=== PATIENT | female | born 1945 | race Caucasian/White ===

== ENCOUNTER 2018-04-11 02:54 | Inpatient (IN) | payer OTHER ==
[2018-04-11] VITALS (7 sets, daily range): BP systolic 176–195; BP diastolic 74–104
[~2018-04-11] VITALS: Ht 160 cm; Wt 88.1 kg
--- NOTE | 2018-04-11 05:38 | NUR ---
ASSUMED CARE FROM [facility] VIA EMS, UPON ARRIVAL TO UNIT PT ALERT AND ORIENTED X 4 DATA BASE AND ASSESSMENT COMPLETED, PT REFUSED SCD AND TRYING TO REFUSE BED ALARM, GAIT UNSTEADY AND PT VERY SOA WITH ACTIVITY, EDUCATED PT IMPORTANTS OF USING THE BSC AND CALLING FOR ASSISTANCE, PT VERBALIZED UNDERSTANDING , AND AGREEABLE. RETAIL AIDE IN PLACE SHOW NSR. DISCUSSED PLAN OF CARE , PT VERBALIZED UNDERSTANDING AND AGREEABLE, WILL CONINTUE TO MONITOR [place].
[2018-04-11 06:30] LABS: CHOLESTEROL 151 mg/dL (<200); HDL CHOLESTEROL 50 mg/dL (>40); LDL CHOLESTEROL 92 mg/dL (<100); TRIGLYCERIDE 45 mg/dL (<150); VLDL 9 mg/dL (<40)
[2018-04-11 06:38] LABS: SERUM ASSESSMENT Clear
[2018-04-11 07:49] LABS: URINE BILIRUBIN NEGATIVE (Negative); URINE BLOOD TRACE (Negative); URINE CLARITY CLEAR; URINE COLOR YELLOW; URINE GLUCOSE-RANDOM* NEGATIVE (Negative); URINE KETONES NEGATIVE (Negative); URINE LEUKOCYTES-REFLEX NEGATIVE (Negative); URINE NITRITE-REFLEX NEGATIVE (Negative); URINE PROTEIN (DIPSTICK) 2+ (Negative); URINE UROBILINOGEN 0.2 E.U./dl (0.2-1.0)
[2018-04-11 07:50] LABS: BACTERIA-REFLEX 1-9 Few /HPF (None Seen); CASTS None Seen /LPF (None Seen); CRYSTALS None Seen /LPF (None Seen); SQUAMOUS None Seen /LPF (0-3); URINE RBC 0-2 Rare /HPF (0-2); URINE WBC-REFLEX 0-5 Rare /HPF (0-5)
[2018-04-11 08:32] LABS: ABSOLUTE NEUTROPHILS 8.2 thou/uL (1.4-8.2); BASOPHILS 0.2 % (0.0-2.0); HEMATOCRIT 33.2 % (37.0-47.0); LYMPHOCYTES 4.3 % (24.0-44.0); MCH 30.8 pg (26.0-34.0); MCHC 33.1 g/dL (28.0-37.0); MCV 92.9 fL (80.0-100.0); PLATELET COUNT 165 thou/uL (150-400); POLYS 94.5 % (36.0-66.0); RBC 3.57 mil/uL (4.20-5.00); RDW 14.5 % (10.5-14.5); WBC 8.7 thou/uL (4.0-11.0)
[2018-04-11 08:34] LABS: CALCIUM 8.6 mg/dL (8.5-10.1); MAGNESIUM 1.8 mg/dL (1.8-2.4); POTASSIUM 3.7 mmol/L (3.5-5.1)
--- NOTE | 2018-04-11 10:35 | 2DMMODE ---
[facility] [address] [place] [address] 2 D/M-MODE ECHOCARDIOGRAM Name: KAPIL FONSECA Room #: 363-P ADM IN M.R.#: [id number] Admission: 04/11/18 Attend Phys: Magno Noguera, Discharge: Date of : 43 Date of Service: 04/11/18 1035 Report #: [id number] THIS REPORT FOR: //name// APPROVED REPORT Study performed: 04/11/2018 09:27:30 EXAM: Comprehensive 2D, Doppler, and color-flow Echocardiogram Patient Location: Bedside Room #: 363 Status: routine BSA: 1.91 HR: 100 bpm BP: 187/85 mmHg Rhythm: Tachycardia Other Information Study Quality: Adequate Indications Short of breath, chest pains. Hx: CAD, stents, COPD, HTN, DM. 2D Dimensions RVDd: 41.22 mm IVSd: 13.07 (7-11mm) LVOT Diam: 22.06 (18-24mm) LVDd: 51.37 mm PWd: 11.82 (7-11mm) LVDs: 35.81 (25-40mm) Aortic Root: 36.99 mm Volumes Left Atrial Volume (Systole) Single Plane 4CH: 96.94 mL Single Plane 2CH: 65.61 mL LA ESV Index: 46.00 mL/m2 Aortic Valve AoV Peak Jamal.: 2.54 m/s AO Peak Gr.: 25.81 mmHg LVOT Max P.88 mmHg LVOT Max V: 1.79 m/s EVE Vmax: 2.70 cm2 Mitral Valve E/A Ratio: 1.6 MV Decel. Time: 151.98 ms MV E Max Jamal.: 1.54 m/s [facility] [address] [place] [address] 2 D/M-MODE ECHOCARDIOGRAM Name: KAPIL FONSECA Room #: 363-P [facility] IN .R.#: [id number] Admission: 04/11/18 Attend Phys: Magno Noguera, Discharge: Date of : 43 Date of Service: 04/11/18 1035 Report #: [id number] MV A Jamal.: 0.97 m/s MV PHT: 44.08 ms IVRT: 48.44 ms Pulmonary Valve PV Peak Jamal.: 1.45 m/s PV Peak Gr.: 8.36 mmHg Pulmonary Vein P Vein S: 0.72 m/s P Vein D: 0.71 m/s P Vein S/D Ratio: 1.01 Tricuspid Valve TR Peak Jamal.: 3.58 m/s RAP Estimate: 10.00 mmHg TR Peak Gr.: 51.27 mmHg PA Pressure: 61.00 mmHg Left Ventricle The left ventricle is normal size. There is normal LV segmental wall motion. Mild concentric left ventricular hypertrophy. Left ventricular systolic function is normal. LVEF is 60-65%. Right Ventricle The right ventricle is normal size. The right ventricular systolic function is normal. Atria Left atrium is moderately dilated. The right atrium size is normal. Aortic Valve Aortic valve is mildly calcified. No aortic regurgitation is present. There is no aortic valvular stenosis. Mitral Valve Mitral valve leaflets are mildly thickened and calcified. Mild mitral regurgitation. No evidence of mitral valve stenosis. Tricuspid Valve The tricuspid valve is normal in structure. Mild tricuspid regurgitation. Estimated PAP is 60mmHg. Pulmonic Valve Pulmonic valve is not well visualized. There is no pulmonic valvular stenosis. There is no pulmonic valvular regurgitation noted. [facility] [address] [place] [address] 2 D/M-MODE ECHOCARDIOGRAM Name: KAPIL FONSECA Room #: 363-P [facility] IN M.R.#: [id number] Admission: 04/11/18 Attend Phys: Magno Noguera, Discharge: Date of : 43 Date of Service: 04/11/18 1035 Report #: [id number] Great Vessels The aortic root is normal in size. Descending aorta is not well visualized. IVC is dilated and collapses <50% with inspiration. Pericardium There is no pericardial effusion. <Conclusion> The left ventricle is normal size. LVEF is 60-65%. The right ventricle is normal size. Left atrium is moderately dilated. Aortic valve is mildly calcified. There is no aortic valvular stenosis. Mild mitral regurgitation. Mild tricuspid regurgitation. Estimated PAP is 60mmHg. The aortic root is normal in size. There is no pericardial effusion. <ELECTRONICALLY SIGNED> By: Julio Cesar Morris MD, FACC 04/11/185 34 Julio Cesar Morris MD, FACC /INF
[2018-04-11] MEDS ORDERED: NEURONTIN600 MG PO (12:48)
[2018-04-11] MEDS ORDERED: COZAAR 25 MG TA25 M1 PO (12:49)
[2018-04-11] MEDS ORDERED: LIPITOR40 MG PO (12:50)
[2018-04-11] MEDS ORDERED: K-DUR 20 MEQ T20 MEQ PO (12:50)
[2018-04-11] MEDS ORDERED: TRESIBA FL200 UNIT/1 SUBQ (12:51)
[2018-04-11] MEDS ORDERED: LOVAZA1000 MG PO (12:51)
[2018-04-11] MEDS ORDERED: AMBIEN 5 MG TABL5 M1 PO (12:54)
[2018-04-11] MEDS ORDERED: PERCOCET 10-321 EACH PO (12:55)
[2018-04-11] MEDS ORDERED: TOPAMAX 25 MG T25 M1 PO (12:56)
[2018-04-11] MEDS ORDERED: TOPROL XL25 MG PO (12:56)
[2018-04-11] MEDS ORDERED: VENTOLIN HFA 1818 GM INH (12:57)
[2018-04-11] MEDS ORDERED: AMLODIPINE BESY10 MG PO (12:57)
[2018-04-11] MEDS ORDERED: SINGULAIR 10 MG10 M1 PO (12:57)
[2018-04-11] MEDS ORDERED: NOVOLOG100 UNIT/1 SUBQ (13:00)
[2018-04-11] MEDS ORDERED: BREO ELLIPTA 11 EACH INH (13:00)
[2018-04-11 14:54] LABS: PROT/CREAT RATIO 6.3; URINE CREATININE-RANDOM* 23.9 mg/dL; URINE PROTEIN-RANDOM* 150.7 mg/dL (<11.9)
[2018-04-11 19:23] LABS: HEMATOCRIT 33.4 % (37.0-47.0); HEMOGLOBIN 11.2 gm/dL (12.0-15.0); MCHC 33.6 g/dL (28.0-37.0); MCV 92.3 fL (80.0-100.0); RBC 3.62 mil/uL (4.20-5.00); RDW 14.7 % (10.5-14.5); WBC 8.8 thou/uL (4.0-11.0)
[2018-04-11 19:35] LABS: INR 1.1; PROTIME 11.4 Seconds (9.3-11.4)
--- NOTE | 2018-04-11 19:53 | NUR ---
PT ALERT AND ORIENTED X4. SLIGHTLY FORGETFUL TODAY. THIS AM PT UP TO COMMODE AND HAD 4 MIN OF SVT 180'S. DR ATKINS NOTIFIED AND CARD CONSULT PLACED. REPEAT TROPONIN CALLED TO HIM. MRI HEAD, ECHO, US CAROTIDS, LE DOPPLER, AND RENAL US DONE. 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 RESULT CALLED TO DR ATKINS. PT TO START ON HEPARIN GTT TONIGHT. PT STATES SHE HAD A PREVIOUS RLE DVT 5 MONTHS AGO BUT HAD A REPEAT ULTRASOUND SHOWING NO DVT SINCE THEN SO SHE WAS TAKEN OFF HER ELOQUIS. SOA WITH ACTIVITY TODAY BUT IMPROVING THIS AFTERNOON. IV LASIX GIVEN ORDERED AND DIURESING WELL FOLLOWING. SPOKE WITH PT'S PHARMACY THIS AM AND THEY FAXED A CURRENT MED LIST. MEDICAL RECORDS REQUESTS PLACED TO PT'S PCP AND INSURANCE ANALYST ORDERED. REPORT GIVEN TO MARKETING CLERK RN.
[2018-04-11 20:35] LABS: APTT 28.3 Seconds (24.5-32.8)
[2018-04-12 03:39] LABS: CALCIUM 8.3 mg/dL (8.5-10.1); CREATININE 2.1 mg/dL (0.6-1.0); POTASSIUM 3.2 mmol/L (3.5-5.1)
[2018-04-12 04:10] VITALS: BP 171/79
[2018-04-12 04:11] LABS: HEMATOCRIT 31.4 % (37.0-47.0); HEMOGLOBIN 10.8 gm/dL (12.0-15.0); MCH 31.6 pg (26.0-34.0); MCHC 34.3 g/dL (28.0-37.0); RBC 3.41 mil/uL (4.20-5.00); WBC 10.3 thou/uL (4.0-11.0)
--- NOTE | 2018-04-12 06:32 | NUR ---
PT STARTED ON HEPARIN PER PROTOCOL, APTT RECHECKED THERAPUTIC NO CHANGE NEEDED, WILL RECHECK AM 04/13, NO C/O PAIN, REMINDED PT TO CALL FOR ASSIST, VSS, NO C/O PAIN, WILL MONITOR PER PPOC.
[2018-04-12 08:05] VITALS: BP 157/88
--- NOTE | 2018-04-12 10:06 | NUR ---
Assumed care of patient at 0700. Patient sleeping with home CPAP in place. Upon assessment she c/o not sleeping well throughout the night. At first refusing to go to for nuclear med study, but did become agreeable after talking with RN. Remains on heparin gtt for DVT. Down for CT abd/pelvis, then on to nuclear medicine. Updated neice at bedside.
[2018-04-12 12:03] VITALS: BP 165/87
[2018-04-12] MEDS ORDERED: BUMETANIDE2 M1 PO (13:26)
[2018-04-12] MEDS ORDERED: VENTOLIN HFA 1818 GM INH (13:27)
--- NOTE | 2018-04-12 15:10 | EKG ---
[address] [address] ELECTROCARDIOGRAM REPORT Name: KAPIL FONSECA Room #: 363-P ADM IN M.R.#: [id number] Admission: 04/11/18 Attend Phys: Magno Noguera MD Discharge: Date of : 43 Report #: [id number] THIS REPORT FOR: //name// [facility] Test Date: 2018-04-11 Test Time: 07:36:10 Pat Name: KAPIL FONSECA Department: Room: 363 P Gender: F Information Security Analyst: CASH : [id number] Requested By: Jocelynn Young Order Number: [id number] MD: Martir Luther Measurements Intervals [place] Rate: 102 P: 81 GA: 156 QRS: 78 QRSD: 94 T: 176 QT: 328 QTc: 428 Interpretive Statements Sinus tachycardia Multiform ventricular premature complexes No previous ECG available for comparison Electronically Signed On 04-12-2018 15:09:49 TEACHING ASSISTANT by Martir Luther [email or web address] <ELECTRONICALLY SIGNED> By: Martir Luther MD 04/12/18 1509 [id number] MD ANA MARIA Ca
--- NOTE | 2018-04-12 16:13 | NUR ---
assessment: CM REVIEWED CHART AND MET WITH PATIENT AT THE BEDSIDE. PTS SISTER IN [place] AND NIECE WERE ALSO PRESENT. PT IS ALERT AND ORIENTED X4. PT IS VISITING FAMILY IN AND SHE IS FROM [facility]. PT PLANS TO RETURN A COUPLE DAYS AFTER DISCHARGE. PT REPORTS SHE LIVES IN A HOME WITH HER . PT STATES TWO STEPS TO ENTER THE HOME AND A FULL FLIGHT TO THE BASEMENT TO DO LAUNDRY. PT REPORTS SHE HAS A CPAP AT HOME. PT REPORTS SHE IS FULLY INDEPENDENT WITH ADLS AND AMBULATION. PT DENIES HAVING HH IN THE PAST. CM DISCUSSED ROLE. PT REPORTS SHE WILL HAVE NO NEEDS AT DISCHARGE. PT PLANS ON STAYING WITH HER SISTER IN [place] THEN RETURNING BACK TO [facility].
[2018-04-12 16:58] VITALS: BP 160/82
--- NOTE | 2018-04-12 19:22 | NUR ---
ASSUMED CARE AT 1100, SHIFT ASSESSMENT DONE, MEDS GIVEN, VSS. CAME BACK FROM THE STRESS TEST AT 1230, STARTED ON CARB CONTROL DIET. DENIES ANY NAUSEA, VOMITING. HEPARIN DRIP INFUSING AT 15 U/KG/HR. ACHS, NSR ON TELE. WILL CONTINUE TO ASSESS AND ASSIST WITH ADLs NEEDED.
[2018-04-12 19:51] VITALS: BP 170/89
[2018-04-13 00:05] VITALS: BP 163/81
[2018-04-13 03:13] VITALS: BP 170/81
[2018-04-13 04:49] LABS: ALBUMIN 2.7 g/dL (3.4-5.0); CALCIUM 8.1 mg/dL (8.5-10.1); CREATININE 2.3 mg/dL (0.6-1.0); PHOSPHORUS 3.5 mg/dL (2.5-4.9); POTASSIUM 3.7 mmol/L (3.5-5.1)
--- NOTE | 2018-04-13 06:00 | NUR ---
ASSUMED PT CARE AROUND 1900. A&OX4. C/O BACK PAIN. PAIN MEDICATION GIVEN WITH RELIEF. DENIES ANY SIGNIFICANT SOA. HEPARIN GTT INFUSING PER PROTOCOL FOR DVT. PT SLEPT WITH CPAP AND 1L O2 BLEED IN. UP W/ SBA. STEADY GAIT. BP ELEVATED. PRN HYDRALAZINE GIVEN. PROGRESSING SLOWLY TOWARD POC GOALS. WILL CONTINUE TO MONITOR FURTHER.
[2018-04-13 08:00] VITALS: BP 174/94
[2018-04-13 11:55] VITALS: BP 167/88
[2018-04-13] MEDS ORDERED: METOPROLOL SUCC50 MG PO (14:17)
[2018-04-13] MEDS ORDERED: PREDNISONE 10 M10 MG PO (14:35)
[2018-04-13] MEDS ORDERED: ELIQUIS5 M1 PO (14:35)
[2018-04-13 14:52] VITALS: BP 167/88
--- NOTE | 2018-04-13 16:20 | NUR ---
Assumed care of patient at 0700. Vitals have been stable - BP high this morning, improved later throughout shift. Complaints of chronic back pain, but denies need for PRN pain medication. Heparin gtt infusing - following titration per protocol. Patient displays steady gait, up ad leila in room. Calls appropriately for assistance when needed. Ready for discharge home today. Discharge orders received. To have VQ scan then will be okay to DC home. Heparin gtt discontinued and first dose of Eliquis given to patient. To review new prescriptions, discharge instructions with patient at bedside. Home medication given back to patient from pharmacy. Belongings gathered. Will continue to monitor until DC.
--- NOTE | 2018-04-15 11:20 | HC ---
[facility] [place] [address] CONSULTATION Name: KAPIL FONSECA Room #: 363-P [facility] IN M.R.#: [id number] Admission: 04/11/18 Attend Phys: Magno Noguera MD Discharge: 04/13/18 Date of : 43 Report #: [id number] THIS REPORT FOR: //name// CC: GABRIELA physician/PCP Magno Noguera DATE OF SERVICE: 04/11/2018 REASON FOR CONSULTATION: Elevated creatinine. HISTORY OF PRESENT ILLNESS: This 72-year-old patient visiting family from [place] felt progressive shortness of breath and orthopnea. She came to the hospital. She was found to have infiltrates suggestive of congestive heart failure. She has known coronary artery disease, previous coronary stents and myocardial infarction. She has no recollection about ejection fraction. The patient has longstanding diabetes and known elevated serum creatinine with what she thinks is an estimated GFR as recorded by her lube attendant in [place] at 35 mL per minute. Creatinine here is 2.0 with a BUN of 34. PAST MEDICAL HISTORY: Longstanding diabetes mellitus. No known retinopathy, but she does have peripheral neuropathy. She is unsure as to whether she has had protein in her urine or not in the past. She is a longstanding cigarette smoker with COPD, history of difficult hypertension, obstructive sleep apnea and a previous history of diverticulitis. FAMILY HISTORY: Positive for diabetes, but no renal disease. SOCIAL HISTORY: Longstanding smoker, continues to smoke up to the current time. Occasional glass of wine as well. REVIEW OF SYSTEMS: GENERAL: She was feeling reasonably well, but became progressively short winded with a cough, but no hemoptysis as mentioned. EYES: Her vision is a little bit clouded. She apparently has cataracts. ENT: Hearing okay, swallows okay without mouth ulcers. ENDOCRINE: Positive for the diabetes. RESPIRATORY: Easily short winded, worsening. CARDIAC: No chest pain or angina. GASTROINTESTINAL: Denies nausea, vomiting, diarrhea. GENITOURINARY: Good urinary stream without dysuria, hematuria, or renal stones. NEUROLOGIC: She does have numbness in her feet, evidence of peripheral neuropathy. PSYCHIATRIC: Denies depression or anxiety. PHYSICAL EXAMINATION: [facility] [address] [place] [address] CONSULTATION Name: KAPIL FONSECA Room #: 363-P [facility] IN M.R.#: [id number] Admission: 04/11/18 Attend Phys: Magno Noguera MD Discharge: 04/13/18 Date of : 43 Report #: [id number] GENERAL: This is slightly short winded woman in no acute distress. SKIN: Otherwise, unremarkable. SKELETAL: Somewhat overweight. HEENT: Extraocular movements are full. Vision grossly intact. No scleral icterus. Hearing intact. Mucous membranes moist. Tongue, buccal mucosa benign. NECK: Supple. CHEST: Shows crackles at the lung bases. HEART: Regular. ABDOMEN: Soft and nontender. EXTREMITIES: Show 1+ brawny edema. Peripheral pulses appear to be a bit diminished. LABORATORY DATA: Hemoglobin 11, white count 8.7, platelets 165. Sodium 146, potassium 3.7, chloride 109, bicarbonate 21, creatinine 2, BUN 34. ASSESSMENT: 1. Elevated creatinine. She appears to have some degree of chronic kidney disease followed at home by a lube attendant. Creatinine is 2 here. No records from [place] currently available. We will check her for urine protein studies, paraprotein studies and renal sonogram for more complete workup. 2. Diabetes mellitus with a possible triopathy. 3. Possible congestive heart failure versus pneumonitis. She has been given diuretics and steroids, inhalers and feeling a bit better. Her is retrieving her home medication list currently. 4. History of coronary artery disease with prior PCI and stents. <ELECTRONICALLY SIGNED> By: Julio Cesar Vernon MD 04/15/18 1120 [id number] Julio Cesar Vernon MD /nt
[2018-04-15 12:08] LABS: KAPPA FREE LIGHT CHAINS 35.3 mg/L (3.3-19.4); KAPPA/LAMBDA RATIO 1.56 (0.26-1.65); LAMBDA FREE LIGHT CHAINS 22.6 mg/L (5.7-26.3)
[2018-04-15 17:10] LABS: GLOBULIN TOTAL 3.2 g/dL (2.2-3.9); M-SPIKE Not Observed g/dL (Not Observed)
== END 2018-04-13 17:57 | disposition home or self-care (01) | DRG 682 ==
LOC: 3W 02:54
PROVIDERS: Internal Medicine Nephrology; Nurse Practitioner Acute Care; ADMIT Internal Medicine
PROC: 5A09357 Assistance with Respiratory Ventilation, Less than 24 Consecutive Hours, Continuous Positive Airway Pressure (ICD-10-PCS; principal; 2018-04-11)
DX: N17.9 Acute kidney failure, unspecified (principal); J96.21 Acute and chronic respiratory failure with hypoxia; I50.33 Acute on chronic diastolic (congestive) heart failure; I13.0 Hypertensive heart and chronic kidney disease with heart failure and stage 1 through stage 4 chronic kidney disease, or unspecified chronic kidney disease; J44.1 Chronic obstructive pulmonary disease with (acute) exacerbation; N18.4 Chronic kidney disease, stage 4 (severe); I25.10 Atherosclerotic heart disease of native coronary artery without angina pectoris; E11.42 Type 2 diabetes mellitus with diabetic polyneuropathy; G47.33 Obstructive sleep apnea (adult) (pediatric); F17.210 Nicotine dependence, cigarettes, uncomplicated; I16.0 Hypertensive urgency; E11.22 Type 2 diabetes mellitus with diabetic chronic kidney disease; R00.0 Tachycardia, unspecified; E87.70 Fluid overload, unspecified; E78.5 Hyperlipidemia, unspecified; D64.9 Anemia, unspecified; I65.29 Occlusion and stenosis of unspecified carotid artery; Z95.5 Presence of coronary angioplasty implant and graft; I25.2 Old myocardial infarction; Z83.3 Family history of diabetes mellitus; Z86.718 Personal history of other venous thrombosis and embolism; Z82.3 Family history of stroke; Z79.82 Long term (current) use of aspirin; Z79.899 Other long term (current) drug therapy; Z90.49 Acquired absence of other specified parts of digestive tract
CPT/HCPCS: 10879